=== PATIENT | female | born 1995 | race Caucasian/White ===

== ENCOUNTER 2019-04-10 00:42 | Emergency (ER) | payer MEDICAID ==
[2019-04-10] MEDS ORDERED: ONDANSETRON HCL IV 4 MG/2 ML VIAL IVP PRN (00:52)
--- NOTE | 2019-04-10 00:52 | Emergency Department Record ---
History of Present Illness - General Chief complaint: complication Stated complaint: BLEEDING AND Time Seen by Provider: 04/10/19 00:47 Source: Patient Mode of Arrival: Wheelchair Limitations: No limitations - History of Present Illness Initial comments: 24 yo at 37 weeks gestation presents to ED for evaluation of vaginal cramping and bright red bleeding that began just prior to arrival. Patient denies complications during her . Patient denies health problems at her baseline, does report that she is scheduled to deliver at [facility] with Kailyn ORNELAS MD Complaint: Vaginal bleeding Onset/Timin -: Minutes(s) Location: Abdomen Radiation: None Severity: Moderate Quality: Cramping Consistency: Constant Improves with: None Worsens with: None Associated symptoms: Denies other symptoms Vaginal bleeding: Heavy No complications No complications - Related Data Allergies Allergy/AdvReac Type Severity Reaction Status Date / Time NO KNOWN DRUG ALLERGY Allergy Uncoded 06/26/13 10:05 Review of Systems Constitutional: Denies: Chills, Fever, Malaise Eyes: Denies: Eye discharge, Eye pain ENT: Denies: Congestion, Ear pain Respiratory: Denies: Cough, Dyspnea Cardiovascular: Denies: Chest pain, Dyspnea on exertion Endocrine: Denies: Fatigue, Heat or cold intolerance Gastrointestinal: Reports: Abdominal pain. Denies: Nausea, Vomiting Genitourinary: Denies: Incontinence, Retention Musculoskeletal: Denies: Arthralgia, Back pain Skin: Denies: Bruising, Change in color Neurological: Denies: Abnormal gait, Confusion, Headache, Seizure Psychiatric: Denies: Anxiety Hematological/Lymphatic: Denies: Anemia, Blood Clots Physical Exam - General General Appearance: Alert, Oriented x3, Cooperative, Moderate distress Limitations: No limitations - Head Head exam: Atraumatic, Normocephalic, Normal inspection Head exam detail: negative: Abrasion, Contusion, Coreas's sign, General tenderness, Hematoma, Laceration - Eye Eye exam: Normal appearance. negative: Conjunctival injection, Periorbital swelling, Periorbital tenderness, Scleral icterus - ENT Ear exam: negative: Auricular hematoma, Auricular trauma Nasal Exam: negative: Active bleeding, Discharge, Dried blood, Foreign body Mouth exam: negative: Drooling, Laceration, Muffled voice, Tongue elevation - Neck Neck exam: Normal inspection. negative: Meningismus, Tenderness - Respiratory Respiratory exam: Normal lung sounds bilaterally. negative: Rales, Respiratory distress, Rhonchi, Stridor - Cardiovascular Cardiovascular Exam: Regular rate, Normal rhythm, Normal heart sounds - GI/Abdominal GI/Abdominal exam: Soft, Tenderness, Other (Gravid uterus on examination). negative: Rebound, Rigid - Rectal Rectal exam: Deferred - exam: Vaginal bleeding, Other (3+ station, non-dilated on examination). negative: Vaginal discharge - Extremities Extremities exam: Normal inspection. negative: Pedal edema, Tenderness - Back Back exam: Denies: CVA tenderness (R), CVA tenderness (L) - Neurological Neurological exam: Alert, Normal gait, Oriented X3 - Psychiatric Psychiatric exam: Normal affect, Normal mood - Skin Skin exam: Normal color. negative: Abrasion Type of lesion: negative: abrasion Course - Reevaluation(s) Reevaluation #1: 04/10/19 00:52 [facility] 158 Reevaluation #2: 04/10/19 00:59 Case was discussed with Dr. Roland, will accept patient for transfer. Patient was reassessed, continues to be at 3+ station. No significant hemorrhage is present on examination. Patient appears stable for transfer as delivery does not appear imminent based on my examination. Medical Decision Making - Lab Data Result diagrams: 04/10/19 00:50 04/10/19 00:50 Disposition Disposition: Transfer Clinical Impression: Vaginal bleeding during Disposition: Acute [facility] Transfer Transfer To: [facility] Reason For Transfer: OB evaluation, iminent labor Accepting Physician: Asuncion Time Discussed w/Accepting Physician: 00:59 Condition: (2) Stable Forms: Patient Portal Access Time of Disposition: 00:59 Quality - Quality Measures Quality Measures: N/A - Blood Pressure Screening Does Patient Have Any of the Following: No Blood Pressure Classification: Normal BP Reading Systolic Measurement: 109 Diastolic Measurement: 64 Screening for High Blood Pressure: < Normal BP, F/U Not Required > [G8783]
[2019-04-10] MEDS ORDERED: 0.9 % SODIUM CHLORIDE 1000ML 1,000 ML IV SCH (01:00)
[2019-04-10 01:02] LABS: ABSOLUTE NEUTROPHIL COUNT 13.55; HEMATOCRIT 32.8 % (35.0-47.0); HEMOGLOBIN 10.2 gm/dl (11.6-16.0); MEAN CELL VOLUME 86.1 fl (81-97); MEAN CORPUSCULAR HGB CONC 31.1 g/dl (32-36); MEAN PLATELET VOLUME 10.9 fl (7.4-10.4); PLATELET COUNT 193 K/uL (130-400); RED BLOOD COUNT 3.81 M/uL (3.80-5.40); RED CELL DISTRIBUTION WIDTH 14.6 % (11.5-14.5)
[2019-04-10 01:07] LABS: MEAN CORPUSCULAR HEMOGLOBIN 26.7 pg (27-33)
[2019-04-10] MEDS ORDERED: FENTANYL PF 100MCG/2ML VIAL IVP ONE ×3 (01:11→01:17)
[2019-04-10 01:13] LABS: BLOOD UREA NITROGEN 6 mg/dL (6-20); CREATININE 0.5 mg/dL (0.5-0.9); EST GLOMERULAR FILTRATION RATE > 60 mL/min
[2019-04-10 01:14] LABS: TOTAL PROTEIN 6.7 g/dL (6.6-8.7)
[2019-04-10 01:16] LABS: GLUCOSE,RANDOM 94 mg/dL (74-109)
[2019-04-10 01:18] LABS: ALT/SGPT 8 U/L (<33)
[2019-04-10 01:19] LABS: ALBUMIN 3.4 g/dL (4.0-5.0); ALKALINE PHOSPHATASE 109 U/L (35-104); ANISOCYTOSIS 1+; AST/SGOT 16 U/L (10.0-35.0); PLATELET ESTIMATE NORMAL (NORMAL)
[2019-04-10 01:26] LABS: PROTHROMBIN TIME (PATIENT) 9.9 SECONDS (9.5-12.1)
== END 2019-04-10 01:12 | disposition short-term general hospital (02) ==
LOC: ER 00:42
DX: O46.93 Antepartum hemorrhage, unspecified, third trimester (principal); Z3A.37 37 weeks gestation of pregnancy
CPT/HCPCS: 99285 ×2; 96374; 96375; 85610; 80053; 85379; 85027; J2405; J3010; J7030